=== PATIENT | male | born 2000 | race Caucasian/White ===

== ENCOUNTER 2021-12-04 18:27 | Inpatient (IN) | payer OTHER, SELFPAY ==
--- OUTSIDE RECORDS SUMMARY | 2021-12-04 18:30 | XMS REPORT | Continuity of Care Document ---
:2000 Author Organization [facility] t Address [address] [place] [address] Care Team Providers Name Role Phone PCP, PATIENT DOES NOT HAVE A Primary Care Physician UnavailAbdulaziz Wharton MD Attending Clinician ABDULAZIZ WEIR Attending Clinician Unavailable ABDULAZIZ WEIR Admitting Clinician Unavailable Payers Payer Name Policy Type Policy Number Effective Date Expiration Date [facility] [id number] 2017 [facility] MED[facility] 00:00:00 Problems This patient has no known problems. Allergies, Adverse Reactions, Alerts Allergy Allergy Status Severity Reaction(s) Onset Inactive Treating Comm ents Source Name Type Date Date Clinician Bee Propensi Active Swelling 2018-0 Univer s Sting / ty to 9-10 ity of [place] adverse 00:00: [place] reaction 00 Medical s Branch Soy Propensi [place] - [place] [address] Uni vers ty to comments 9-10 ity of adverse 00:00: [place] reaction 00 Medical s Branch BEE DRUG Active Swelling 2018-0 Univers STING / INGREDI 9-10 ity of [place] 00:00: [place] [facility] Banks SOY DRUG Active Other-Cmnt 2018-0 Univer s INGREDI 9-10 ity of 00:00: [place] 00 Medical Branch Social History Social Habit Start Date Stop Date Quantity Comments Source Exposure to Not sure [facility] SARS-CoV-2 (event) Medica l Branch [facility] [birth year] [facility] [place] [facility] Medical Branch Smoking Status Start Date Stop Date Source Unknown if ever smoked [facility] Medications Ordered Filled Start Stop Current Ordering Indication Dosage Frequency Signature Comments Components Source Medication Medication Date Date Medication? Clinician (SIG) Name Name ibuprofen Yes [id number] 600mg Take 1 Univers 600 mg -23 9102 tablet by ity of tablet 00:00: mouth [place] 00 every 8 Medical (eight) Branch hours as needed for Pain (scale 4-6). ibuprofen Yes 800mg Take 1 Unive rs 800 mg 9-10 tablet by ity of tablet 00:00: mouth 2 00 (two) Medical times Branch daily with meals. Vital Signs Vital Name Observation Time Observation Value Comments Source Systolic blood 2021-06-08 02:05:00 167 mm[Hg] Univer sity of pressure [facility] Diastolic blood 2021-06-08 02:05:00 85 mm[Hg] Unive rsity [facility] Heart rate 2021-06-08 02:05:00 84 /min [facility] Body temperature 2021-06-08 02:05:00 37.17 [facility] Respiratory rate 2021-06-08 02:05:00 18 /min [facility] Body height 2021-06-08 02:05:00 175.3 cm [facility] Body weight 2021-06-08 02:05:00 102.059 kg [facility] BMI 2021-06-08 02:05:00 33.23 kg/m2 [facility] Oxygen saturation in 2021-06-08 02:05:00 100 /min [facility] Arterial blood by [facility] Pulse oximetry Branch Procedures Procedure Date / Time Performed Performing Clinician Shamir e XR WRIST 3+ VW LEFT 2021-06-08 02:40:11 Abdulaziz Weir [facility] NOTICE OF PRIVACY 2021-06-08 01:58:56 Doctor Unassigned, No Univ [facility] Name [facility] Branch CONSENT/REFUSAL FOR 2021-06-08 01:58:36 Doctor Unassigned, [facility] AND Name [facility] Branch TREATMENT Encounters Start End Encounter Admission Attending Care Care Encounter Source Date/Time Date/Time Type Type Clinicians Facility Department ID 2021-06-07 2021-06-07 Emergency Carmella FLSHEYLA [id number] Univers 20:04:00 21:27:00 Abdulaziz ISBELL [id number] i Tiff [id number] [facility] [id number] [place] [id number] Branch 2021-06-07 2021-06-07 Emergency X [facility] ERT [id number] Univers 20:04:00 21:27:00 ABDULAZIZ franks of [facility] Results This patient has no known results.
[2021-12-04] MEDS ORDERED: NA CHLORIDE 0.9% 1,000 ML ONE ×2 (20:12→21:32)
[2021-12-04 20:22] LABS: Absolute Lymphocytes (CBC) 1.2 K/uL (0.7-4.9); Hematocrit 50.5 % (39.6-49.0); Lymphocytes % 6.9 % (15.3-44.8); MCV 90.5 fL (80-100); MPV 7.6 fL (7.6-11.3); RBC Red Blood Cell Count 5.58 M/uL (4.33-5.43)
[2021-12-04 21:23] LABS: Potassium 4.5 mmol/L (3.5-5.1)
[2021-12-04 21:24] LABS: Troponin High Sensitivity 78.7 pg/mL (<58.9)
[2021-12-04 21:39] LABS: Magnesium 2.2 mg/dL (1.8-2.4)
[2021-12-04 21:44] LABS: Urine Blood Negative (Negative); Urine Glucose Negative (Negative); Urine Protein 2+ (Negative); Urine Specific Gravity >=1.030 (1.005-1.030); Urine pH 5.5 (5.0-7.0)
[2021-12-04] MEDS ORDERED: FENTANYL CITR 100 MCG/2 ML ONE (21:56)
[2021-12-04 22:07] LABS: Barbiturates NEGATIVE (NEGATIVE); Benzodiazepines NEGATIVE (NEGATIVE); Cocaine NEGATIVE (NEGATIVE); METHAMPHETAM NEGATIVE (NEGATIVE); Methadone NEGATIVE (NEGATIVE); Opiates NEGATIVE (NEGATIVE); Phencyclidine NEGATIVE (NEGATIVE); THC Cannibis NEGATIVE (NEGATIVE)
--- NOTE | 2021-12-04 22:07 | RAD REPORT ---
EXAM DESCRIPTION: CT - Thorax Wo Con - 12/04/2021 9:59 pm CLINICAL HISTORY: Fall with chest pain COMPARISON: none TECHNIQUE: Computed axial tomography of the chest was obtained. Contrast was not requested. All CT scans are performed using dose optimization technique as appropriate and may include automated exposure control or mA/KV adjustment according to patient size. FINDINGS: The evaluation of mediastinum, avila and vessels is limited secondary to lack of IV contras t administration. No pulmonary contusion A mediastinal hematoma is not seen. No mediastinal or hilar lymphadenopathy is seen. A pleural effusion is not present. No pericardial effusion IMPRESSION: No acute abnormality is displayed
--- NOTE | 2021-12-04 22:12 | RAD REPORT ---
EXAM DESCRIPTION: CT - Stone Protocol - 12/04/2021 9:56 pm CLINICAL HISTORY: Abdominal pain. Acute kidney failure COMPARISON: None. TECHNIQUE: Computed axial tomography of the abdomen pelvis was obtained without oral or IV contrast. Lack of IV and oral contrast limits evaluation of solid organs, appendix, bowel, and vessels. Gamez l reformatted images were obtained and reviewed. All CT scans are performed using dose optimization technique as appropriate and may include automated exposure control or mA/KV adjustment according to patient size. FINDINGS: A renal calculus is not seen. An ureteral calculus is not noted. A bladder calculus is not present. No hydronephrosis The liver, spleen, pancreas and adrenals appear grossly normal There is no evidence of diverticulitis. The appendix appears normal IMPRESSION: Negative for a genitourinary calculus
[2021-12-04 22:18] LABS: Urine Mucus 3+ /HPF (None Seen)
[2021-12-04 22:19] LABS: Urine Bacteria 20-50 /HPF (<20)
--- NOTE | 2021-12-04 22:19 | RAD REPORT ---
EXAM DESCRIPTION: Carolann Single View12/04/2021 10:10 pm CLINICAL HISTORY: Shortness of breath COMPARISON: none FINDINGS: The lungs appear clear of acute infiltrate. The heart is normal size IMPRESSION: No acute abnormalities displayed
[2021-12-04 22:20] LABS: Calcium Oxalate Crystals- Ur Many /HPF (None Seen)
--- NOTE | 2021-12-04 22:24 | ER ---
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 Pt continued working outdoors throughout the day. Also reports vomiting x4 episodes. Coronavirus screen: Vaccine status: Patient reports being unvaccinated. Client denies travel out of the [place] in the last 14 days. Ebola Screen: Patient negative for fever greater than or equal to 101.5 degrees Fahrenheit, and additional compatible Ebola Virus Disease symptoms Patient denies exposure to infectious person. Patient denies travel to an Ebola-affected area in the 21 days before illness onset. No symptoms or risks identified at this time. Initial Sepsis Screen: Does the patient meet any 2 criteria? No. Patient's initial sepsis screen is negative. Does the patient have a suspected source of infection? No. Patient's initial sepsis screen is negative. Risk Assessment: Do you want to hurt yourself or someone else? Patient reports no desire to harm self or others. Onset of symptoms was December 04, 2021 at 12:00. 19:00 Method Of Arrival: Ambulatory kb3 19:00 Acuity: HEIKE 3 kb3 Triage Assessment: 19:04 General: Appears in no apparent distress. Behavior is calm, cooperative. Pain: kb3 Complains of pain in back, abdomen, right leg and left leg. GI: Reports vomiting. Historical: - Allergies: 19:04 No Known Allergies; kb3 - Home Meds: 19:04 None [Active]; kb3 - PMHx: 19:04 None; kb3 - PSHx: 19:04 None; kb3 - Immunization history:: Adult Immunizations up to date, Client reports having NOT received the Covid vaccine. Last tetanus immunization: up to date. - Social history:: Smoking status: Patient reports the use of cigarette tobacco products, smokes one-half pack cigarettes per day, Patient uses alcohol, occasionally. Patient/guardian denies using street drugs. Screenin:23 Abuse screen: Denies threats or abuse. Denies injuries from another. Nutritional tw5 screening: No deficits noted. Tuberculosis screening: No symptoms or risk factors identified. Fall Risk None identified. Assessment: 19:23 General: Reports "I was working out in the sun all day. After I drank an energy drink I tw5 started to feel cramp in my stomach, back and down my legs. I drank a crap ton of water and some pickle juice. I threw up the pickle juice though.". Pain: Complains of pain in right leg and left leg Pain currently is 5 out of 10 on a pain scale. Neuro: No deficits noted. Cardiovascular: Heart tones S1 S2 present Capillary refill < 3 seconds. Respiratory: Breath sounds are clear bilaterally. Derm: Skin is flushed. 20:15 General: Reports "I just had some cramps again.". tw5 22:16 General: Reports "The cramps are pretty bad.". Pain: Pain currently is 8 out of 10 on a tw5 pain scale. 12/05 00:45 GI: Bowel sounds present X 4 quads. Abd is soft X 4 quads Abdomen is tender to lg3 palpation. Vital Signs: 12/04 19:00 BP 128 / 86; Pulse 99; Resp 20; Temp 98.0; Pulse Ox 98% ; Weight 99.79 kg; Height 5 ft. kb3 10 in. (177.80 cm); Pain 10/10; 19:23 BP 141 / 89; Pulse 91; Resp 18; Pulse Ox 98% on R/A; tw5 20:14 BP 138 / 81; Pulse 90; Resp 18; Pulse Ox 97% on R/A; tw5 22:16 BP 125 / 86; Pulse 81; Resp 18; Pulse Ox 97% on R/A; tw5 22:31 Pain 7/10; tw5 19:00 Body Mass Index 31.57 (99.79 kg, 177.80 cm) kb3 ED Course: 18:29 Patient arrived in ED. rg4 18:30 Ambrose Lam PA is PHCP. cp 18:30 Hever Swann MD is Attending Physician. cp 19:04 Triage completed. kb3 19:04 Arm band placed on right wrist. kb3 19:23 Karyna Gillis is Primary Nurse. tw5 19:23 Patient has correct armband on for positive identification. Placed in gown. Bed in low tw5 position. Call light in reach. Pulse ox on. NIBP on. Door closed. Noise minimized. Moved to private room. Warm blanket given. Verbal reassurance given. 19:40 Attending Physician role handed off by Hever Swann MD [facility] 19:40 Ambrose Silva MD is Attending Physician. alexandre 20:14 Basic Metabolic Panel Sent. tw5 20:14 CBC with Diff Sent. tw5 20:14 Troponin HS Sent. tw5 20:14 Initial lab(s) drawn, by sd, sent to lab. EKG done. Inserted saline lock: 20 gauge in tw5 left antecubital area, using aseptic technique. Blood collected. 21:25 Notified Nurse Practitioner and/or Physician Clinical Administrator of a critical lab result(s), lp1 Troponin 78.7. 21:26 Magnesium Sent. tw5 21:26 Lipase Sent. tw5 21:52 UDS Sent. lp1 21:52 Urine Microscopic Only Sent. lp1 21:57 CT Stone Protocol In Process Unspecified. EDMS 21:59 CT Chest Wo Con In Process Unspecified. EDMS 22:12 XRAY Chest (1 view) In Process Unspecified. EDMS 22:23 Marilyn Chamberlain PA is Hospitalizing Provider. cp 22:27 Urine Culture Sent. tw12/05 00:44 No provider procedures requiring assistance completed. Patient admitted, IV remains in lg3 place. intact, No redness/swelling at site. Administered Medications: 12/04 20:14 Drug: NS 0.9% 1000 ml Route: IV; Rate: 1000 ml; Site: right antecubital; tw5 22:18 Follow up: Response: No adverse reaction; IV Status: Completed infusion; IV Intake: tw5 1000ml 21:40 Drug: NS 0.9% 1000 ml Route: IV; Rate: 1 bolus; Site: right antecubital; tw12/05 01:03 Follow up: Response: No adverse reaction; IV Status: Completed infusion; IV Intake: lg3 1000ml 12/04 22:17 Drug: fentaNYL (PF) 25 mcg Route: IVP; Site: right antecubital; tw 22:31 Follow up: Pain 7/10 Adult; Response: No adverse reaction; Pain is decreased; RASS: tw5 Alert and Calm (0) 22:30 Drug: Aspirin Chewable Tablet 324 mg Route: PO; tw5 23:16 Follow up: Response: No adverse reaction lg3 22:30 Drug: Lovenox (enoxaparin) 1 mg/kg Route: Sub-Q; Site: right lower abdomen; tw5 23:15 Follow up: Response: No adverse reaction lg3 Medication: 12/05 00:46 VIS not applicable for this client. lg3 Intake: 12/04 22:18 IV: 1000ml; Total: 1000ml. tw5 12/05 01:03 IV: 1000ml; Total: 2000ml. lg3 Outcome: 12/04 22: Decision to Hospitalize by Provider. cp 12/05 00:44 Admitted to ER Hold. Please see [facility] for further documentation. lg3 Condition: stable Instructed on the need for admit, Demonstrated understanding of instructions. 14:51 Patient left the ED. tw2 Signatures: Dispatcher [employer] EDMS Ambrose Silva MD MD cha Pena, Laura, RN RN lp1 Ambrose Lam PA PA cp Monica Fernandez, RN RN tw2 Cierra Lomax rg4 Sandra Taylor RN RN lg3 Karyna Gillis tw5 Ludmila Tee, RN RN kb3 Corrections: (The following items were deleted from the chart) 12/04 21:25 21:21 CREATINE PHOSPHOKINASE+C.LAB.BRZ drawn and sent. tw EDMS 21:25 21:21 MAGNESIUM+C.LAB.BRZ drawn and sent. tw EDMS 21: 21:21 LIPASE+C.LAB.BRZ drawn and sent. tw5 EDMS
--- NOTE | 2021-12-04 22:25 | EDPHYS ---
Physician Documentation [facility] Name: Oliver Smyth Age: 21 yrs Sex: Male : 2000 Arrival Date: 12/04/2021 Time: 18:29 Bed 15 Private MD: ED Physician Ambrose Silva Historical: - Allergies: 12/04 19:04 No Known Allergies; kb3 - Home Meds: 19:04 None [Active]; kb3 - PMHx: 19:04 None; kb3 - PSHx: 19:04 None; kb3 - Immunization history:: Adult Immunizations up to date, Client reports having NOT received the Covid vaccine. Last tetanus immunization: up to date. - Social history:: Smoking status: Patient reports the use of cigarette tobacco products, smokes one-half pack cigarettes per day, Patient uses alcohol, occasionally. Patient/guardian denies using street drugs. Exam: 20:17 ECG was reviewed by the Attending Physician. cp Vital Signs: 19:00 BP 128 / 86; Pulse 99; Resp 20; Temp 98.0; Pulse Ox 98% ; Weight 99.79 kg; Height 5 ft. kb3 10 in. (177.80 cm); Pain 10/10; 19:23 BP 141 / 89; Pulse 91; Resp 18; Pulse Ox 98% on R/A; tw5 20:14 BP 138 / 81; Pulse 90; Resp 18; Pulse Ox 97% on R/A; tw5 22:16 BP 125 / 86; Pulse 81; Resp 18; Pulse Ox 97% on R/A; tw5 22:31 Pain 7/10; tw5 19:00 Body Mass Index 31.57 (99.79 kg, 177.80 cm) kb3 MDM: 19:40 Patient medically screened. alexandre 12/04 20:01 Order name: Basic Metabolic Panel; Complete Time: 21:52 lp1 12/04 21:28 Interpretation: Normal except: NA 135; ANION GAP 15.5; GLUC 112; BUN 21; CRE 2.98; GFR cp 29; CA 11.4. 12/04 20:01 Order name: CBC with Diff; Complete Time: 21:19 lp1 12/04 21:20 Interpretation: Normal except: WBC 17.50; RBC 5.58; HCT 50.5; KEITH% 88.5; LYM% 6.9; NEUT cp A 15.5. 12/04 20:01 Order name: Troponin HS; Complete Time: 21:52 lp1 12/04 21:28 Interpretation: Abnormal: Troponin HS 78.7. cp 12/04 21:20 Order name: Urine Microscopic Only; Complete Time: 22:21 cp 12/04 21:25 Order name: Creatine Phosphokinase; Complete Time: 21:52 EDMS 12/04 21:25 Order name: Magnesium; Complete Time: 21:52 EDMS 12/04 21:25 Order name: Lipase; Complete Time: 21:52 EDMS 12/04 21:52 Interpretation: Abnormal: LIP 67. cp 12/04 21:29 Order name: UDS; Complete Time: 22:17 cp 12/04 21:44 Order name: Urine Dipstick-Ancillary; Complete Time: 21:52 EDMS 12/04 22:23 Order name: Urine Culture EDMS 12/04 23:24 Order name: SARS RAPID; Complete Time: 01:07 lg3 12/04 20:01 Order name: EKG; Complete Time: 20:02 lp1 12/04 20:01 Order name: Cardiac monitoring; Complete Time: 01:03 lp1 12/04 21:19 Order name: XRAY Chest (1 view); Complete Time: 22:21 cp 12/04 21:30 Order name: CT Stone Protocol; Complete Time: 22:17 cp 12/04 22:17 Interpretation: Report reviewed. 12/04 21:53 Order name: CT Chest Wo Con; Complete Time: 22:17 cp 12/04 22:17 Interpretation: Report reviewed. 12/05 02:55 Order name: CBC with Automated Diff; Complete Time: 13:07 EDMS 12/05 03:29 Order name: Renal Panel; Complete Time: 13:07 EDMS 12/05 03:29 Order name: Troponin High Sensitivity; Complete Time: 13:07 EDMS 12/05 03:29 Order name: Magnesium; Complete Time: 13:07 EDMS 12/05 03:29 Order name: Thyroid Stimulating Hormone; Complete Time: 13:07 EDMS 12/05 07:35 Order name: US; Complete Time: 13:07 EDMS 12/04 20:01 Order name: EKG - Nurse/Tech; Complete Time: 20:14 lp1 12/04 20:01 Order name: IV Saline Lock; Complete Time: 20:14 lp1 12/04 20:01 Order name: Labs collected and sent; Complete Time: 20:14 lp1 12/04 20:01 Order name: O2 Per Protocol; Complete Time: 20:14 lp1 12/04 20:01 Order name: O2 Sat Monitoring; Complete Time: 20:14 lp1 12/04 21:20 Order name: Urine Dipstick-Ancillary (obtain specimen); Complete Time: 21:43 cp EC: Rate is 86 beats/min. Rhythm is regular. MI interval is normal. QRS interval is normal. cp QT interval is normal. T waves are Inverted in lead aVR. Interpreted by me. Reviewed by me. Administered Medications: 20:14 Drug: NS 0.9% 1000 ml Route: IV; Rate: 1000 ml; Site: right antecubital; tw5 22:18 Follow up: Response: No adverse reaction; IV Status: Completed infusion; IV Intake: tw5 1000ml 21:40 Drug: NS 0.9% 1000 ml Route: IV; Rate: 1 bolus; Site: right antecubital; tw5 12/05 01:03 Follow up: Response: No adverse reaction; IV Status: Completed infusion; IV Intake: lg3 1000ml 12/04 22:17 Drug: fentaNYL (PF) 25 mcg Route: IVP; Site: right antecubital; tw5 22:31 Follow up: Pain 7/10 Adult; Response: No adverse reaction; Pain is decreased; RASS: tw5 Alert and Calm (0) 22:30 Drug: Aspirin Chewable Tablet 324 mg Route: PO; tw5 23:16 Follow up: Response: No adverse reaction lg3 22:30 Drug: Lovenox (enoxaparin) 1 mg/kg Route: Sub-Q; Site: right lower abdomen; tw5 23:15 Follow up: Response: No adverse reaction lg3 Disposition Summary: 12/04/21 22:23 Hospitalization Ordered Hospitalization Status: Inpatient Admission cp Provider: Marilyn Chamberlain cp Condition: Stable cp Problem: new cp Symptoms: have improved cp Bed/Room Type: Standard cp Location: Telemetry/MedSurg (Inpatient)(12/05/21 14:16) bd Room Assignment: 210(12/05/21 14:16) bd Diagnosis - Heat syncope cp - Acute kidney failure, unspecified cp - Abnormal electrocardiogram [ECG] [EKG] cp Forms: - Medication Reconciliation Form cp - SBAR form cp Signatures: Dispatcher [employer] EDMS Sloane Andres Corey, MD MD cha Pena, Laura, RN RN lp1 Ambrose Lam PA PA cp Garcia, Cindy, MICHELLE RN Karyna Mireles tw5 Marilyn Chamberlain PA PA sb3 Ludmila Tee RN RN kb3 Sandra Taylor RN lg3 Corrections: (The following items were deleted from the chart) 21:25 21:20 CREATINE PHOSPHOKINASE+C.LAB.BRZ ordered. EDMS EDMS : 21:20 MAGNESIUM+C.LAB.BRZ ordered. EDMS EDMS : 21:20 LIPASE+C.LAB.BRZ ordered. EDNV EDMS 12/05 00:23 08 22:23 Telemetry/MedSurg (observation) cp cg 12/05 00:23 12/04 22:23 cp cg 12/05 14:16 00:23 [facility] ER HOLD cg bd 14:16 00:23 ERHOLD- cg bd
[2021-12-04] MEDS ORDERED: ASPIRIN EC 81 MG TAB PO ONE (22:37)
[2021-12-04] MEDS ORDERED: ENOXAPARIN 100 MG/ML SYR SQ ONE (22:37)
[2021-12-04 23:49] LABS: SARS-CoV-2 Antigen Rapid Res Negative (Negative)
--- NOTE | 2021-12-05 00:17 | P.HP ---
Certification for Inpatient Patient admitted to: Observation With expected LOS: <2 Midnights Patient will require the following post-hospital care: None Practitioner: I am a practitioner with admitting privileges, knowledge of patient current condition, hospital course, and medical plan of care. Services: Services provided to patient in accordance with Admission requirements found in Title 42 Section 412.3 of the Code of Federal Regulations Patient History Date of Service: 12/05/21 Reason for admission: Acute Renal Failure History of Present Illness: Patient is a 21-year-old male with no past medical history who presented to the ED after syncopal episode. Patient reports that he was working outside and got very overheated and "blacked out" around 12. He reports that earlier in the day, he drank an energy drink (like usual). 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 Vital signs stable upon arrival to the ED. Labs significant for BUN 21, creatinine 2.98, WBC 17.5, troponin HS 78.7, CPK WNL, Urine positive for UTI, UDS negative, CT chest/abd negative. He was given 2 L of fluid, 25 mcg of fentanyl, 324 mg aspirin, and therapeutic Lovenox. Upon my assessment, patient reports he is feeling much better. All of his symptoms have resolved. He denies any prior episodes. ED provider wishes admit patient for further evaluation and treatment. Allergies No Known Allergies Allergy (Unverified 05/31/17 10:26) Home medications list reviewed: Yes (NA) - Past Medical/Surgical History Diabetic: No Past Medical History: Patient denies medical history Past Surgical History: Patient denies surgical history Psychosocial/ Personal History: Patient lives at home. - Family History Father -: Stroke - Social History Smoking Status: Current every day smoker Alcohol use: Yes CD- Drugs: No Caffeine use: Yes Place of Residence: Home Review of Systems Gastrointestinal: Nausea, Vomiting, Abdominal Pain Musculoskeletal: Leg Pain Physical Examination - Physical Exam General: Alert, In no apparent distress HEENT: Atraumatic, PERRLA, EOMI, Sclerae nonicteric Neck: Supple, 2+ carotid pulse no bruit, No LAD, Without JVD or thyroid abnormality Respiratory: Clear to auscultation bilaterally, Normal air movement Cardiovascular: Regular rate/rhythm, Normal S1 S2 Gastrointestinal: Normal bowel sounds, No tenderness Musculoskeletal: No tenderness Integumentary: No rashes Neurological: Normal gait, Normal speech, Normal strength at 5/5 x4 extr, Normal tone, Normal affect - Studies Laboratory Data (last 24 hrs) 12/04/21 21:19: Magnesium Cancelled, Lipase Cancelled 12/04/21 20:13: WBC 17.50 H, Hgb 17.2, Hct 50.5 H, Plt Count 393 12/04/21 20:13: Sodium 135 L, Potassium 4.5, BUN 21 H, Creatinine 2.98 H, Glucose 112 H, Magnesium 2.2, Lipase 67 L Assessment and Plan - Problems (Diagnosis) (1) Acute renal failure Current Visit: Yes Status: Acute Qualifiers: Acute renal failure type: unspecified Qualified Code(s): N17.9 - Acute kidney failure, unspecified (2) UTI (urinary tract infection) Current Visit: Yes Status: Acute Qualifiers: Urinary tract infection type: acute cystitis Hematuria presence: without hematuria Qualified Code(s): N30.00 - Acute cystitis without hematuria (3) Leukocytosis Current Visit: Yes Status: Acute Qualifiers: Leukocytosis type: unspecified Qualified Code(s): D72.829 - Elevated white blood cell count, unspecified (4) Elevated troponin Current Visit: Yes Status: Acute - Plan -Continue IVF at 125 cc/hour -Repeat labs in the morning: CBC, BMP, mag, trop, renal panel, TSH -Rocephin for UTI -Nephrology consulted and renal US ordered -Monitor and replete electrolytes per protocol -Reconcile and continue home medications -Lovenox for VTE ppx -Full code Discharge Plan: Home Plan to discharge in: 24 Hours - Advance Directives Does patient have a Living Will: No Does patient have a Durable POA for Healthcare: No - Code Status/Comfort Care Code Status Assessed: Yes (Full) Critical Care: No Time Spent Managing Pts Care (In Minutes): 50
[2021-12-05] MEDS ORDERED: CEFTRIAXONE 1000 MG/VIAL ONE (00:31)
[2021-12-05] MEDS ORDERED: NA CHLORIDE 0.9% 1,000 ML ONE ×2 (00:31→12:17)
[2021-12-05] MEDS ORDERED: ONDANSETRON 4 MG/2 ML VIAL IV PRN (00:33)
[2021-12-05] MEDS ORDERED: ACETAMINOPHEN 500 MG TAB PO PRN (00:33)
[2021-12-05] MEDS ORDERED: CEFTRIAXONE 1,000 MG in NA CHLORIDE 0.9% 50 ML IVPB SCH ×2 (00:33→20:00)
[2021-12-05] MEDS: NA CHLORIDE 0.9% 1,000 ML IV SCH ×2 (00:36→09:00)
[2021-12-05] MEDS: FAMOTIDINE 20 MG TAB PO SCH ×2 (00:38→20:23)
[2021-12-05] MEDS ORDERED: FAMOTIDINE 20 MG TAB ONE (00:49)
[2021-12-05 01:00] VITALS: BMI 31.5
[2021-12-05] MEDS ORDERED: ALPRAZOLAM 0.25 MG TABLET PO PRN (01:43)
[2021-12-05 02:54] LABS: Absolute Lymphocytes (CBC) 2.8 K/uL (0.7-4.9); Hematocrit 41.7 % (39.6-49.0); Lymphocytes % 21.5 % (15.3-44.8); MCV 90.9 fL (80-100); MPV 7.8 fL (7.6-11.3); RBC Red Blood Cell Count 4.59 M/uL (4.33-5.43)
[2021-12-05 03:11] LABS: Albumin 3.7 g/dL (3.4-5.0); Magnesium 2.1 mg/dL (1.8-2.4); Phosphorus 4.8 mg/dL (2.5-4.9); Potassium 3.4 mmol/L (3.5-5.1); Thyroid Stimulating Hormone 2.12 uIU/mL (0.360-3.740)
[2021-12-05 03:28] LABS: Troponin High Sensitivity 62.1 pg/mL (<58.9)
[2021-12-05] MEDS ORDERED: POTASSIUM 25 MEQ EFFERV TAB ONE (05:11)
[2021-12-05] MEDS ORDERED: POTASSIUM 25 MEQ EFFERV TAB PO ONE (06:20)
--- NOTE | 2021-12-05 07:35 | RAD REPORT ---
EXAM DESCRIPTION: US - Renal Ultrasound-Complete - 12/05/2021 1:06 am CLINICAL HISTORY: acute renal failure COMPARISON: <Comparisons> FINDINGS: Both kidneys are normal in size, shape and echotexture. The right kidney measures 9.7 cm. No hydronephrosis, focal mass or perinephric fluid. The left kidney measures 10.2 cm. No hydronephrosis, focal mass or perinephric fluid. The urinary bladder is incompletely distended without gross abnormality seen. IMPRESSION: Unremarkable renal sonogram. No evidence of hydronephrosis.
[2021-12-05] MEDS: ENOXAPARIN 40 MG/0.4 ML SQ SCH (09:00)
--- NOTE | 2021-12-05 13:49 | EKG ---
Test Date: 2021-12-04 Test Time: 20:10:35 Art Manager: MAGNOLIA MEASUREMENT RESULTS: Intervals: Rate: 86 FL: 158 QRSD: 92 QT: 344 QTc: 411 [place]: P: 52 FL: 158 QRS: 91 T: 34 INTERPRETIVE STATEMENTS: Normal sinus rhythm Right atrial enlargement Rightward axis Incomplete right bundle branch block ST elevation, probably due to early repolarization Borderline ECG No previous ECG available for comparison Electronically Signed On 12-05-21 13:48:34 CDT by Mj Miles
[2021-12-05] MEDS ORDERED: NA CHLORIDE 0.9% 1,000 ML IV ONE (14:54)
[2021-12-05 15:34] VITALS: O2SAT 97
[2021-12-05] MEDS: NA CHLORIDE 0.9% 1,000 ML with POTASSIUM CL 20 MEQ IV SCH ×2 (16:11)
--- NOTE | 2021-12-05 17:32 | P.PN ---
Date of Service: 12/05/21 Patient states he feels better today. No nausea or vomiting. Renal function is improving slowly. Leukocytosis is improving. Diagnosis: Acute renal failure UTI Leukocytosis. Plan; Obtain blood cultures. Urine culture. Continue IV rocephin Continue IV hydration. Monitor renal functon.
--- NOTE | 2021-12-05 18:54 | CON ---
Reason For Consultation: Elevated BUN and creatinine, fluid management. History Of Present Illness: This is a pleasant 21-year-old gentleman without any significant past me dical history, no home medications. The patient came to the hospital complaining that he was working outside and started feeling weak and dizzy. The patient was working in the heat. Upon arrival to [facility], found elevation in creatinine 2.9 with low GFR and found to have UTI. Rhabdomyolysis marcos s been ruled out. The patient was started on aggressive hydration. The patient started feeling bett er. Kidney function started improving. Past Medical History: Negative. Allergies: NO KNOWN DRUG ALLERGIES. Home Medications: Negative. Past Surgical History: Negative. Family History: Positive for CVA and hypertension. Social History: Active smoker, active alcohol. Denied drugs abuse. Review of Systems: Head and Neck: No red eye. No ear pain. GI: Nausea. No vomiting. : No polyuria. No dysuria. No hematuria. Customer Service Analyst: Not applicable. Respiratory: No shortness of breath. Cardiovascular: No chest pain. Endocrine: No polydipsia. Skin: No rash. Neuro: Fatigue. Musculoskeletal: Cramp and weakness. Physical Examination: Vital Signs: Blood pressure 118/60, pulse of 72, afebrile. Chest: Clear to auscultation. Heart: S1, S2. Regular. Abdomen: Soft, nontender. Extremity: No edema. Neurological: Alert, oriented x3. No focal. Laboratory Data: Upon arrival; creatinine 2.9, GFR 29, sodium 135. Currently sodium 138, potassium 3.4, bicarb 26, BUN 21, creatinine 1.7, GFR of 55, calcium 8.7. TSH 2.1. WBC 13, H and H 14.2/41.7. Urinalysis; positive for infection, WBC of 10. Renal ultrasound, 9.7 and 10.2. Assessment And Plan: 1.Acute kidney injury secondary to prerenal, secondary to dehydration, secondary to heat exhaustion. The patient looked to me still on the dry side. I am going to go ahead and start the patient on ag gressive hydration. We will continue IV fluid. I am going to bolus the patient with another liter o f normal saline and we will follow up. 2.Hypokalemia. We will supplement the patient aggressively. 3.Hyponatremia secondary to depletion, will be corrected with fluid resuscitation. 4.Heat exhaustion as above. We will continue hydration. Thank you, Dr. Prince for allowing us to participate in the care of your patient. YOU Voice ID: [id number] Report ID: [id number]
[2021-12-05] MEDS ORDERED: POTASSIUM CL SA 10 MEQ TAB PO ONE (19:00)
[2021-12-06] MEDS: NA CHLORIDE 0.9% 1,000 ML with POTASSIUM CL 20 MEQ IV SCH ×4 (00:35→08:39)
[2021-12-06 03:53] LABS: Absolute Lymphocytes (CBC) 3.8 K/uL (0.7-4.9); Hematocrit 39.6 % (39.6-49.0); Lymphocytes % 37.7 % (15.3-44.8); MCV 91.9 fL (80-100); MPV 7.7 fL (7.6-11.3); RBC Red Blood Cell Count 4.31 M/uL (4.33-5.43)
[2021-12-06 04:04] LABS: Albumin 3.3 g/dL (3.4-5.0); Phosphorus 2.3 mg/dL (2.5-4.9)
[2021-12-06 08:00] VITALS: BP 147/78; TEMP 97.5
[2021-12-06] MEDS: ENOXAPARIN 40 MG/0.4 ML SQ SCH (08:39)
--- NOTE | 2021-12-06 09:07 | P.DS ---
Admission Date: 12/05/21 Discharge Date: 12/06/21 Disposition: ROUTINE DISCHARGE Reason for Admission: Acute Renal Failure - Problems (1) Acute renal failure Status: Acute Qualifiers: Acute renal failure type: unspecified Qualified Code(s): N17.9 - Acute kidney failure, unspecified (2) Elevated troponin Status: Acute (3) Leukocytosis Status: Acute Qualifiers: Leukocytosis type: unspecified Qualified Code(s): D72.829 - Elevated white blood cell count, unspecified (4) UTI (urinary tract infection) Status: Acute Qualifiers: Urinary tract infection type: acute cystitis Hematuria presence: without hematuria Qualified Code(s): N30.00 - Acute cystitis without hematuria Brief History of Present Illness: Patient is a 21-year-old male with no past medical history who presented to the ED after syncopal episode. Patient reported that he was working outside and got very overheated and "blacked out". He reports that earlier in the day, he drank an energy drink (like usual). 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 Vital signs stable upon arrival to the ED. Labs significant for BUN 21, creatinine 2.98, WBC 17.5, troponin HS 78.7, CPK WNL, Urine positive for UTI, UDS negative, CT chest/abd negative. He was given 2 L of fluid, 25 mcg of fentanyl, 324 mg aspirin, and therapeutic Lovenox. All of his symptoms resolved in the ED. Patient admitted for further management. Hospital Course: Patient treated with IV Rocephin for UTI and aggressively hydrated with IV fluid for the renal failure. Acute renal failure resolved. Urine culture grew mixed organisms. Leukocytosis resolved with IV hydration. Patient was afebrile and asymptomatic. He is eating well and ambulatory. Patient is considered stable for discharge. He is prescribed cefpodoxime to continue treatment for UTI. Vital Signs/Physical Exam: Temp Pulse Resp BP Pulse Ox 97.5 F 69 18 147/78 H 98 12/06/21 07:59 12/06/21 07:59 12/06/21 07:59 12/06/21 07:59 12/06/21 07:59 General: Alert, In no apparent distress, Oriented x3 HEENT: Mucous membr. moist/pink Neck: JVD not distended Respiratory: Clear to auscultation bilaterally, Normal air movement Cardiovascular: No edema, Regular rate/rhythm, Normal S1 S2 Gastrointestinal: Soft and benign, Non-distended Musculoskeletal: No swelling Integumentary: No rashes, No erythema, No cyanosis Neurological: Normal speech, Normal strength at 5/5 x4 extr Lymphatics: No axilla or inguinal lymphadenopathy Laboratory Data at Discharge: WBC 10.00 K/uL (4.3-10.9) D 12/06/21 03:27 Hgb 13.4 g/dL (13.6-17.9) L 12/06/21 03:27 Hct 39.6 % (39.6-49.0) 12/06/21 03:27 Plt Count 292 K/uL (152-406) 12/06/21 03:27 Sodium 140 mmol/L (136-145) 12/06/21 03:27 Potassium 5.0 mmol/L (3.5-5.1) 12/06/21 03:27 BUN 18 mg/dL (7-18) 12/06/21 03:27 Creatinine 0.90 mg/dL (0.55-1.3) 12/06/21 03:27 Glucose 95 mg/dL (74-106) 12/06/21 03:27 Phosphorus 2.3 mg/dL (2.5-4.9) L D 12/06/21 03:27 Magnesium 2.0 mg/dL (1.8-2.4) 12/06/21 03:27 Lipase Cancelled 12/04/21 21:19 Home Medications: Cefpodoxime Proxetil [Vantin] 200 mg PO BID #12 12/06/21 New Medications: Cefpodoxime Proxetil [Vantin] 200 mg PO BID #12 Diet: Regular Activity: Ad rosa Followup: NONE,NONE [Primary Care Provider] - 1 Week Time spent managing pt's care (in minutes): 37
[2021-12-06] MEDS ORDERED: NS KCL 20MEQ 1,000 ML IV SCH (10:00)
--- NOTE | 2021-12-06 14:04 | PN ---
Date of Progress Note: 12/06/2021 Subjective: The patient was admitted with acute kidney injury secondary to heat exhaustion and rhabd omyolysis. The patient had aggressively hydrated over the night. Kidney function normalized. Physical Examination: Vital Signs: Blood pressure 147/78, pulse of 69, afebrile. Chest: Clear to auscultation. Heart: S1, S2. Regular. Abdomen: Soft, nontender. Extremities: No edema. Laboratory Data: H and H 13.4/39.6, yesterday was 17.2/50.5. Sodium 140, potassium 5, bicarb 27, BU N 18, creatinine 0.9, GFR of 95, albumin 3.3, calcium 8.6, phosphorus 2.3. Current Medications: Include; 1.IV fluid. 2.KCl. Assessment And Plan: 1.Acute kidney injury, normal size kidney, secondary to prerenal, heat exhaustion, recovered, resolv ed. 2.Urinary tract infection. Continue current antibiotic. Okay from the Renal standpoint for dischar ge planning. 3.Heat exhaustion with marginal rhabdomyolysis, recovered, resolved. The patient cleared from the R enal standpoint for discharge planning. 4.Hypokalemia, status post supplement. 5.Hypomagnesemia, status post supplement. MA/MODL Voice ID: [id number] Report ID: [id number]
== END 2021-12-06 10:25 | disposition home or self-care (01) | DRG 683 ==
LOC: ER 18:27 → ERHOLD 12-05 00:11 → OBSVTOIN 12-05 12:30 → 2ND 12-05 14:38
PROVIDERS: ADMIT Internal Medicine; ATTEND Internal Medicine
DX: N17.9 Acute kidney failure, unspecified (principal); N30.00 Acute cystitis without hematuria; D72.829 Elevated white blood cell count, unspecified; F17.210 Nicotine dependence, cigarettes, uncomplicated; R77.8 Other specified abnormalities of plasma proteins; Z28.310 Unvaccinated for COVID-19; Z20.822 Contact with and (suspected) exposure to COVID-19
CPT/HCPCS: 36415; 71045; 71250; 74176; 76377; 76770; 80048; 80069; 80307; 81003; 81015; 82550; 83690; 83735; 84443; 84484; 85025; 87040; 87086; 87088; 87811; 93005; 96361; 96372; 96374; 99285; G0378; J1650; J3010; J3480; J7030